=== PATIENT | male | born 1945 | race Caucasian/White ===

== ENCOUNTER 2018-01-10 12:29 | Inpatient (IN) | payer OTHER ==
[2018-01-10 12:36] VITALS: BMI 34.2
[2018-01-10 13:38] LABS: HEMATOCRIT 46.6 % (35.4-49); HEMOGLOBIN 15.2 GM/dl (11.7-16.9); MCH 27.5 pg (25.7-33.7); MCHC 32.7 g/dl (32.0-35.9); MEAN CELL VOLUME 84.2 fl (80-96); MEAN PLT VOLUME 8.7 fl (7.5-11.1); PLATELET COUNT 254 K/MM3 (134-434); RBC 5.54 M/mm3 (4.00-5.60); RDW 13.3 % (11.9-15.9); WHITE BLOOD COUNT 16.5 K/mm3 (4.0-10.8)
[2018-01-10 13:57] LABS: ALBUMIN 4.6 g/dl (3.5-5.0); ALK PHOS 72 U/L (32-92); BLOOD UREA NITROGEN 29 mg/dl (7-18); CALCIUM 10.3 mg/dl (8.4-10.2); CREATININE 1.6 mg/dl (0.6-1.3); GLUCOSE,RANDOM 241 mg/dl (74-106); MAGNESIUM 1.7 mg/dL (1.8-2.4); SGOT/AST 24 U/L (10-42); SGPT/ALT 9 U/L (10-40); TOT PROT 7.3 g/dl (6.4-8.3)
[2018-01-10 13:58] LABS: ACTIVATED PTT 25.3 SECONDS (24.0-38.9)
--- NOTE | 2018-01-10 13:59 | PDOC ---
History of Present Illness - General History Source: Patient Exam Limitations: No Limitations - History of Present Illness Initial Comments: 01/10/18 13:55 72-year-old male with past medical history of a left inguinal hernia, Parkinson' s disease, diabetes presents with nausea, vomiting and unable to pass bowel movements. Patient reports her last 2 days that he feels that he has decreased colitis diffuse abdominal pain and distention. Denies any fevers or chills. Does report some nausea and vomiting. He has been known to have a left inguinal hernia that he has outpatient surgeons evaluating him for potential surgery. Came to the ED for further evaluation. <Kolton Mcleod - Last Filed: 01/10/18 17:01> <Janene Rodriguez - Last Filed: 01/10/18 17:14> - General Chief Complaint: Pain Stated Complaint: abdominal pain Time Seen by Provider: 01/10/18 12:34 Past History - Past Medical History COPD: No Diabetes: Yes HTN: Yes Hypercholesterolemia: Yes - Suicide/Smoking/Psychosocial Hx Smoking History: Former smoker Have you smoked in the past 12 months: No Information on smoking cessation initiated: No Hx Alcohol Use: No Drug/Substance Use Hx: No <Kolton Mcleod - Last Filed: 01/10/18 17:01> <Janene Rodriguez - Last Filed: 01/10/18 17:14> - Past Medical History Allergies/Adverse Reactions: Allergies Allergy/AdvReac Type Severity Reaction Status Date / Time Penicillins Allergy Verified 01/10/18 12:37 Home Medications: Ambulatory Orders Aspirin 81 mg PO DAILY 01/10/18 Carbidopa/Levodopa [Rytary ER 23.75 mg-95 mg Cap] 3 each PO TID 01/10/18 Metformin HCl 500 mg PO DAILY 01/10/18 Ranitidine HCl [Zantac] 150 mg PO DAILY 01/10/18 Simvastatin [Zocor -] 40 mg PO DAILY 01/10/18 Review of Systems - Review of Systems Able to Perform ROS?: Yes Comments:: 01/10/18 13:56 GENERAL/CONSTITUTIONAL: No fever, weakness. HEAD, EYES, EARS, NOSE AND THROAT: No change in vision. No ear pain or discharge. No sore throat. CARDIOVASCULAR: No chest pain or shortness of breath. RESPIRATORY: No cough, wheezing, or hemoptysis. GASTROINTESTINAL: + abdominal pain, nausea, vomiting, diarrhea,decreased PO intolerance. +decreased flatus. GENITOURINARY: No dysuria, frequency, or change in urination. MUSCULOSKELETAL: No joint or muscle swelling or pain. No neck or back pain. SKIN: No rash NEUROLOGIC: No headache, vertigo, loss of consciousness, or change in strength/ sensation. ENDOCRINE: No increased thirst. No abnormal weight change. HEMATOLOGIC/LYMPHATIC: No anemia, easy bleeding, or history of blood clots. ALLERGIC/IMMUNOLOGIC: No hives or skin allergy. <Kolton Mcleod - Last Filed: 01/10/18 17:01> *Physical Exam - Vital Signs Last Vital Signs Temp Pulse Resp BP Pulse Ox 97.2 F L 80 22 142/86 99 01/10/18 12:01/10/18 12:01/10/18 12:01/10/18 12:01/10/18 13:30 - Physical Exam Comments: 01/10/18 13:57 GENERAL: Awake, alert, and fully oriented, in no acute distress. HEAD: No signs of trauma EYES: PERRLA, EOMI, sclera anicteric, conjunctiva clear ENT: Auricles normal inspection, hearing grossly normal, nares patent NECK: Normal ROM, supple, LUNGS: Breath sounds equal, clear to auscultation bilaterally. No wheezes, and no crackles HEART: Regular rate and rhythm, normal S1 and S2, no murmurs, rubs or gallops ABDOMEN: Soft but distended. Tympanic. Diffuse mildly tender throughout. No guarding, no rebound. exam: Large left sided inguinal hernia appreciated. No scrotal tenderness EXTREMITIES: Normal range of motion, no edema. No clubbing or cyanosis. No cords, erythema, or tenderness NEUROLOGICAL: Cranial nerves II through XII grossly intact. Normal speech, normal gait SKIN: Warm, Dry, normal turgor, no rashes or lesions noted. <Kolton Mcleod - Last Filed: 01/10/18 17:01> - Vital Signs Last Vital Signs Temp Pulse Resp BP Pulse Ox 97.2 F L 80 22 142/86 99 01/10/18 12:31 01/10/18 12:01/10/18 12:01/10/18 12:01/10/18 13:30 <Janene Rodriguez Last Filed: 01/10/18 17:14> Heart Score/ECG Review #1 ECG reviewed & interpreted by me at: 14:00 01/10/18 14:01 AV paced 95 <Kolton Mcleod - Last Filed: 01/10/18 17:01> ED Treatment Course - LABORATORY CBC & Chemistry Diagram: 01/10/18 13:15 01/10/18 13:15 - ADDITIONAL ORDERS Additional order review: 01/10/18 13:15 RBC 5.54 MCV 84.2 MCHC 32.7 RDW 13.3 MPV 8.7 Neutrophils % No Result Required. Lymphocytes % No Result Required. - RADIOLOGY Radiology Studies Ordered: Category Date Time Status ABDOMEN & PELVIS CT W/O CONTR [CT] Stat CT Scan 01/10/18 13:12 Taken <Kolton Mcleod - Last Filed: 01/10/18 17:01> - LABORATORY CBC & Chemistry Diagram: 01/10/18 13:15 01/10/18 13:15 - ADDITIONAL ORDERS Additional order review: Laboratory Results 01/10/18 01/10/18 01/10/18 13:15 13:15 13:15 PT with INR 13.1 H INR 1.17 PTT (Actin FS) 25.3 L Sodium 137 Potassium 4.2 Chloride 98 Carbon Dioxide 23 Anion Gap 16 BUN 29 H Creatinine 1.6 H Creat Clearance w eGFR 42.46 Random Glucose 241 H Calcium 10.3 H Phosphorus 4.0 Magnesium 1.7 L Total Bilirubin 1.0 AST 24 ALT 9 L Alkaline Phosphatase 72 Troponin I < 0.03 Total Protein 7.3 Albumin 4.6 01/10/18 13:15 RBC 5.54 MCV 84.2 MCHC 32.7 RDW 13.3 MPV 8.7 Neutrophils % No Result Required. Lymphocytes % No Result Required. <Janene Rodriguez - Last Filed: 01/10/18 17:14> Medical Decision Making - Medical Decision Making 01/10/18 13:57 Vital Signs Temp Pulse Resp BP Pulse Ox 97.2 F L 80 22 142/86 99 01/10/18 12:31 01/10/18 12:31 01/10/18 12:31 01/10/18 12:31 01/10/18 13:30 Given the large hernia and nausea and vomiting and distended abdomen, we'll need to rule out obstruction secondary to hernia. Labs, CAT scan abdomen pelvis. Reassess. 01/10/18 15:46 CBC, BMP 01/10/18 13:15 01/10/18 13:15 CMP Sodium 137 mmol/L (136-145) 01/10/18 13:15 Potassium 4.2 mmol/L (3.5-5.1) 01/10/18 13:15 Chloride 98 mmol/L (98-107) 01/10/18 13:15 Carbon Dioxide 23 mmol/L (22-28) 01/10/18 13:15 Anion Gap 16 (8-16) 01/10/18 13:15 BUN 29 mg/dl (7-18) H 01/10/18 13:15 Creatinine 1.6 mg/dl (0.6-1.3) H 01/10/18 13:15 Creat Clearance w eGFR 42.46 (>60) 01/10/18 13:15 Random Glucose 241 mg/dl (74-106) H 01/10/18 13:15 Calcium 10.3 mg/dl (8.4-10.2) H 01/10/18 13:15 Phosphorus 4.0 mg/dl (2.5-4.6) 01/10/18 13:15 Magnesium 1.7 mg/dL (1.8-2.4) L 01/10/18 13:15 Total Bilirubin 1.0 mg/dl (0.2-1.0) 01/10/18 13:15 AST 24 U/L (10-42) 01/10/18 13:15 ALT 9 U/L (10-40) L 01/10/18 13:15 Alkaline Phosphatase 72 U/L (32-92) 01/10/18 13:15 Troponin I < 0.03 ng/ml (0.00-0.06) 01/10/18 13:15 Total Protein 7.3 g/dl (6.4-8.3) 01/10/18 13:15 Albumin 4.6 g/dl (3.5-5.0) 01/10/18 13:15 Lipase 188 U/L (73-393) 01/10/18 13:15 Patient is noted with a white count 16.5 and 12% bands. Blood cultures ordered. Levaquin and Flagyl was ordered. CT scan demonstrates large left inguinal hernia and bowel obstruction. Dr. Pauline velarde. Awaiting phone call back from Dr. Cox. Case was discussed with patient's daughter, Lorraine, who was aware and agrees with the plan. [facility]. Case discussed in detail with admitting physician including history, physical exam and ancillary studies. Admitting physician has assumed care for the patient, will follow all pending diagnostics and will complete the evaluation and treatment. 01/10/18 17:[address] Cox. Patient has not seen their service since 2003, and has not been their patient since 2003. Dr. Cox requests that the on-call surgical team be consulted. [facility] paged. <Kolton Mcleod - Last Filed: 01/10/18 17:01> - Medical Decision Making 01/10/18 15:32 [facility] [phone] D[facility] [phone] Case discussed with daughter Lorraine at [phone] 01/10/18 16:53 Placed call to office of Dr. Wally Carpenter of general surgery, who the patient has seen in the past, at [phone]. Received call back from covering physician, Dr. Cox. 01/10/18 17:11 Placed call to [facility], ultrasonic seaming machine operator for surgery, at [phone]. Case discussed with Dr. Laughlin who agreed to consult. <Janene Rodriguez - Last Filed: 01/10/18 17:14> *DC/Admit/Observation/Transfer - Discharge Dispostion Admit: Yes <Kolton Mcleod - Last Filed: 01/10/18 17:01> - Attestations Scribe Attestion: 01/10/18 15:33 Documentation prepared by Janene Rodriguez, acting as medical equipment repairer for Kolton Mcleod MD. <Janene Rodriguez - Last Filed: 01/10/18 17:14> Diagnosis at time of Disposition: Bowel obstruction Qualifiers: Intestinal obstruction type: unspecified Intestinal obstruction extent: unspecified extent Qualified Code(s): K56.609 - Unspecified intestinal obstruction, unspecified as to partial versus complete obstruction Inguinal hernia Qualifiers: Obstruction and gangrene presence: with obstruction but without gangrene Laterality: unspecified laterality Recurrence: non-recurrent Qualified Code(s): K40.30 - Unilateral inguinal hernia, with obstruction, without gangrene, not specified as recurrent - Discharge Dispostion Condition at time of disposition: Stable
[2018-01-10 14:02] LABS: INR 1.17 (0.82-1.09); PROTHROMBIN TIME (PATIENT) 13.1 SEC (10.2-13.0)
[2018-01-10 14:27] LABS: ANION GAP 16 (8-16); CHLORIDE 98 mmol/L (98-107); CO2 23 mmol/L (22-28); POTASSIUM 4.2 mmol/L (3.5-5.1); SODIUM 137 mmol/L (136-145)
[2018-01-10 15:43] LABS: LIPASE 188 U/L (73-393)
[2018-01-10] MEDS ORDERED: SODIUM CHLORIDE 1,000 ML IV SCH (15:45)
[2018-01-10] MEDS ORDERED: PANTOPRAZOLE SODIUM 40 MG VIAL IVPUSH ONE (16:00)
[2018-01-10] MEDS ORDERED: SODIUM CHLORIDE 1,000 ML IV STA (16:12)
[2018-01-10] MEDS ORDERED: PANTOPRAZOLE SODIUM 40 MG VIAL ONE (16:38)
[2018-01-10] MEDS ORDERED: HEMOQUE TEST 1 EACH EACH ONE ×2 (16:40→16:42)
[2018-01-10] MEDS ORDERED: INSULIN (NOVOLOG) ASPART 100 UNITS/ML 10ML VIAL ONE (16:53)
[2018-01-10] MEDS: INSULIN SLIDING SCALE (NOVOLOG) 1 VIAL SQ SCH (16:55)
--- NOTE | 2018-01-10 18:11 | CONSULT ---
Consult Consult Specialty:: general surgery Referred by:: hernia and obstruction Reason for Consultation:: hernia with obstruction - History of Present Illness Chief Complaint: vomiting History of Present Illness: 72yo male PMH Parkinson's HTN, Diabetes type 2, hyperlipidemia, dementia, s/p PPM for 3rd degree heart block, s/p right inguinal hernia repair (30 years ago) presents to the emergency department with complaints of abdominal pain, nausea and vomiting. He has a very large left inguinal hernia, enlarging over years. He has been previously seen by Dr. Wally Carpenter with similar symptoms. He report that the pain is now resolved. He reports difficulty with closing his legs. He also reports difficulty with having bowel movements. NGT could not be placed, now the patient is refusing. He gives a vague account of being evaluated in a [facility] for the same repair. He is not interested in having surgery at present. We were asked to assess. 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 Place of : [facility] History of Recent Travel: No Home Medications - Allergies Allergies/Adverse Reactions: Allergies Allergy/AdvReac Type Severity Reaction Status Date / Time No Known Allergies Allergy Unverified 01/10/18 23:46 - Home Medications Home Medications: Ambulatory Orders Aspirin 81 mg PO DAILY 01/10/18 Carbidopa/Levodopa [Rytary ER 23.75 mg-95 mg Cap] 3 each PO TID 01/10/18 Metformin HCl 500 mg PO DAILY 01/10/18 Ranitidine HCl [Zantac] 150 mg PO DAILY 01/10/18 Simvastatin [Zocor -] 40 mg PO DAILY 01/10/18 Review of Systems - Review of Systems Constitutional: denies: Chills, Fever, Malaise Eyes: denies: Blurred Vision, Recent Change in Vision HENT: denies: Difficult Swallowing, Throat Pain Neck: denies: Pain on Movement, Swollen Glands Cardiovascular: denies: Chest Pain, Edema Respiratory: denies: Cough, SOB Gastrointestinal: denies: Constipation, Diarrhea Genitourinary: denies: Discharge, Dysuria Musculoskeletal: denies: Muscle Pain, Muscle Weakness Integumentary: denies: Lesions, Rash Neurological: denies: Seizure, Syncope Endocrine: denies: Unexplained Weight Gain, Unexplained Weight Loss Hematology/Lymphatic: denies: Easily Bruised, Excessive Bleeding Psychiatric: denies: Anxiety, Depression Physical Exam Vital Signs: Vital Signs Temperature 97.2 F L 01/10/18 12:31 Pulse Rate 80 01/10/18 12:31 Respiratory Rate 22 01/10/18 12:31 Blood Pressure 142/86 01/10/18 12:31 O2 Sat by Pulse Oximetry (%) 99 01/10/18 13:30 Vital Signs Period Temp Pulse Resp BP Sys/Garay Pulse Ox Last 24 Hr 97.2 F-98.5 F 78-80 18-22 90-142/51-86 95-100 Intake & Output 01/10/18 01/11/18 01/11/18 23:59 07:59 15:59 Weight 225 lb Other: Voiding Method Toilet # Unmeasured Voids Void 1 Height 5 ft 8 in Body Mass Index (BMI) 34.2 Constitutional: Yes: Well Nourished, No Distress, Calm Eyes: Yes: Conjunctiva Clear, EOM Intact HENT: Yes: Atraumatic, Normocephalic Neck: Yes: Supple, Trachea Midline Cardiovascular: Yes: Regular Rate and Rhythm, S1, S2 Respiratory: Yes: Regular, CTA Bilaterally Gastrointestinal: Yes: Normal Bowel Sounds, Soft, Distention, Hernia (Large left inguinal partially reducible). No: Tenderness, Tenderness, Epigastrium, Tenderness, Rebound ...Rectal Exam: Yes: Deferred Renal/: No: CVA Tenderness - Left, CVA Tenderness - Right Musculoskeletal: No: Muscle Pain, Muscle Weakness Extremities: No: Cool, Cyanosis Neurological: Yes: Alert, Oriented, Confusion (moments of confusion, memory omission during conversation) Psychiatric: Yes: Alert, Oriented Labs: CBC, BMP 01/10/18 13:15 01/10/18 13:15 Imaging - Results Cat Scan: Report Reviewed, Image Reviewed (Left inguinal hernia with assocaited bowel obstrution) Problem List - Problems (1) Left inguinal hernia Assessment/Plan: 72yo male MMP with Large left inguinal hernia with associated partial small bowel obstruction, Lactic acid 3.5-->2.4, WBC - 16.5, intermittent vomiting but also diarrhea. No tenderness or peritonitis. His abdominal pain has resolved. He needs surgery to address his obstruction. He appears to understand the situation and his oriented but is refusing to have surgery. Attempted to contact his daughter, Anna Marie [phone] - no answer, left a message. NPO and IVF hydration NGT prn vomiting empiric IV antibiotics Adequate analgesia Cardiology evaluation appreciated Psychiatric evaluation repeat labs serial abdominal exams Transfer to [facility] for Left inguinal hernia repair with mesh Thank you for the opportunity to participate in the care of this patient. Code(s): K40.90 - UNIL INGUINAL HERNIA, W/O OBST OR GANGR, NOT SPCF RECUR (2) HTN (hypertension) Code(s): I10 - ESSENTIAL (PRIMARY) HYPERTENSION (3) Hyperlipemia Code(s): E78.5 - HYPERLIPIDEMIA, UNSPECIFIED (4) Bowel obstruction Code(s): K56.609 - UNSP INTESTNL OBST, UNSP TO PARTIAL VERSUS COMPLETE OBST Qualifiers: Intestinal obstruction type: unspecified Intestinal obstruction extent: unspecified extent Qualified Code(s): K56.609 - Unspecified intestinal obstruction, unspecified as to partial versus complete obstruction (5) Third degree heart block by electrocardiogram Code(s): I44.2 - ATRIOVENTRICULAR BLOCK, COMPLETE
[2018-01-10 22:14] LABS: PH,URINE 5.5 (4.5-8); URINE APPEARANCE Clear; URINE BILIRUBIN 1+ (NEGATIVE); URINE BLOOD Negative (NEGATIVE); URINE GLUCOSE (UA) Trace (NEGATIVE); URINE KETONE 1+ (NEGATIVE); URINE NITRITE Negative (NEGATIVE); URINE UROBILINOGEN 0.2 (0.2-1.0)
[2018-01-10 22:15] LABS: URINE COLOR YELLOW; URINE LEUK ESTERASE TRACE (NEGATIVE); URINE PROTEIN 1+ (NEGATIVE)
--- NOTE | 2018-01-10 22:51 | HP ---
CHIEF COMPLAINT: abdominal pain PCP: Sabino HISTORY OF PRESENT ILLNESS: This is a 72 year old male with a significant history of L inguinal hernia who presented to the ED with abdominal pain, nausea and vomiting. He also reports difficulty with having bowel movements. Upon exam, pt denies current vomiting. He reports that his pain has resolved. ER course was notable for: (1) CT abd/pelvis (2) WBC 16.5 (3) Recent Travel: pt denies PAST MEDICAL HISTORY: L inguinal hernia, Parkinson's disease, DM, HLD, HTN (no longer on medications) PAST SURGICAL HISTORY: PPM Social History: Smoking: pt denies Alcohol: occ wine Drugs: pt denies Family History: mother age 84, unknown father age 76, unknown, h/o DM 1 brother with "GI disorders" 1 sister age 51, pancreatic CA 1 sister s/p PPM placement Allergies Penicillins Allergy (Verified 01/10/18 12:37) HOME MEDICATIONS: 3 Medication Instructions Recorded Aspirin 81 mg PO DAILY 01/10/18 Carbidopa/Levodopa [Rytary ER 3 each PO TID 01/10/18 23.75 mg-95 mg Cap] Metformin HCl 500 mg PO DAILY 01/10/18 Ranitidine HCl [Zantac] 150 mg PO DAILY 01/10/18 Simvastatin [Zocor -] 40 mg PO DAILY 01/10/18 REVIEW OF SYSTEMS CONSTITUTIONAL: Absent: fever, chills, diaphoresis, generalized weakness, malaise, loss of appetite, weight change HEENT: Absent: rhinorrhea, nasal congestion, throat pain, throat swelling, difficulty swallowing, mouth swelling, ear pain, eye pain, visual changes CARDIOVASCULAR: Absent: chest pain, syncope, palpitations, irregular heart rate, lightheadedness , peripheral edema RESPIRATORY: Absent: cough, shortness of breath, dyspnea with exertion, orthopnea, wheezing, stridor, hemoptysis GASTROINTESTINAL: Present: abdominal pain, nausea, vomiting Absent: abdominal distension, diarrhea, constipation, melena, hematochezia GENITOURINARY: Absent: dysuria, frequency, urgency, hesitancy, hematuria, flank pain, genital pain MUSCULOSKELETAL: Absent: myalgia, arthralgia, joint swelling, back pain, neck pain SKIN: Absent: rash, itching, pallor HEMATOLOGIC/IMMUNOLOGIC: Absent: easy bleeding, easy bruising, lymphadenopathy, frequent infections ENDOCRINE: Absent: unexplained weight gain, unexplained weight loss, heat intolerance, cold intolerance NEUROLOGIC: Absent: headache, focal weakness or paresthesias, dizziness, unsteady gait, seizure, mental status changes, bladder or bowel incontinence PSYCHIATRIC: Absent: anxiety, depression, suicidal or homicidal ideation, hallucinations. PHYSICAL EXAMINATION Vital Signs - 24 hr 3 01/10/18 01/10/18 01/10/18 12:31 13:30 18:30 Temperature 97.2 F L 98.1 F Pulse Rate 80 Pulse Rate [ 78 Left Radial] Respiratory 22 20 Rate Blood Pressure 142/86 Blood Pressure 120/76 [Right Arm] O2 Sat by Pulse 99 99 100 Oximetry (%) 3 01/10/18 01/10/18 19:37 22:10 Temperature 98.4 F 98.3 F Pulse Rat 80 80 Pulse Rate [ Left Radial] Respiratory 20 19 Rate Blood Pressure 90/55 98/51 Blood Pressure [Right Arm] O2 Sat by Pulse 96 95 Oximetry (%) GENERAL: Awake, alert, and fully oriented, in no acute distress. HEAD: Normal with no signs of trauma. EYES: Pupils equal, round and reactive to light, extraocular movements intact, sclera anicteric, conjunctiva clear. No lid lag. EARS, NOSE, THROAT: Ears normal, nares patent, oropharynx clear without exudates. Moist mucous membranes. NECK: Normal range of motion, supple without lymphadenopathy, JVD, or masses. LUNGS: Breath sounds equal, clear to auscultation bilaterally. No wheezes, and no crackles. No accessory muscle use. HEART: Regular rate and rhythm, normal S1 and S2 without murmur, rub or gallop. ABDOMEN: Soft, not distended, normoactive bowel sounds, no guarding, no rebound , no masses. No hepatomegaly or splenomegaly. + mild tenderness left groin area MUSCULOSKELETAL: Normal range of motion at all joints. No bony deformities or tenderness. No CVA tenderness. UPPER EXTREMITIES: 2+ pulses, warm, well-perfused. No cyanosis. No clubbing. No peripheral edema. LOWER EXTREMITIES: 2+ pulses, warm, well-perfused. No calf tenderness. No peripheral edema. NEUROLOGICAL: Cranial nerves II-XII intact. Normal speech. Normal gait. PSYCHIATRIC: Cooperative. Good eye contact. Appropriate mood and affect. SKIN: Warm, dry, normal turgor, no rashes or lesions noted, normal capillary refill. Laboratory Results - last 24 hr 3 01/10/18 01/10/18 01/10/18 13:15 13:15 13:15 16:44 WBC 16.5 H RBC 5.54 Hgb 15.2 Hct 46.6 MCV 84.2 MCH 27.5 MCHC 32.7 RDW 13.3 Plt Count 254 MPV 8.7 Neutrophils % No Result Required. Neutrophils % (Manual) 84.0 H Band Neutrophils % 12.0 H Lymphocytes % No Result Required. Lymphocytes % (Manual) 1.0 L Monocytes % (Manual) 3 L PT with INR 13.1 H INR 1.17 PTT (Actin FS) 25.3 L Sodium 137 Potassium 4.2 Chloride 98 Carbon Dioxide 23 Anion Gap 16 BUN 29 H Creatinine 1.6 H Creat Clearance w eGFR 42.46 POC Glucometer [phone] Random Glucose 241 H Lactic Acid 3.4 H* Calcium 10.3 H Phosphorus 4.0 Magnesium 1.7 L Total Bilirubin 1.0 AST 24 ALT 9 L Alkaline Phosphatase 72 Troponin I < 0.03 Total Protein 7.3 Albumin 4.6 Lipase 188 Urine Color Urine Appearance Urine pH Ur Specific [place] Urine Protein Urine Glucose (UA) Urine Ketones Urine Blood Urine Nitrite Urine Bilirubin Urine Urobilinogen Ur Leukocyte Esterase 3 01/10/18 01/10/18 01/10/18 20:15 22:00 22:16 WBC RBC Hgb Hct MCV MCH MCHC RDW Plt Count MPV Neutrophils % Neutrophils % (Manual) Band Neutrophils % Lymphocytes % Lymphocytes % (Manual) Monocytes % (Manual) PT with INR INR PTT (Actin FS) Sodium Potassium Chloride Carbon Dioxide Anion Gap BUN Creatinine Creat Clearance w eGFR POC Glucometer 140 Random Glucose Lactic Acid 2.5 H* Calcium Phosphorus Magnesium Total Bilirubin AST ALT Alkaline Phosphatase Troponin I Total Protein Albumin Lipase Urine Color Yellow Urine Appearance Clear Urine pH 5.5 Ur Specific [place] 1.025 Urine Protein 1+ H Urine Glucose (UA) Trace Urine Ketones 1+ H Urine Blood Negative Urine Nitrite Negative Urine Bilirubin 1+ H Urine Urobilinogen 0.2 Ur Leukocyte Esterase Trace H Radiology Results IMPRESSION: a mall bowel obstruction is identified secondary to a large left inguinal hernia extending into the ipsilateral scrotum. A small amount of free fluid is noted within the left scrotal hernia sac as well as within the perihepatic region. Extensive atherosclerotic coronary artery calcifications are seen. Transvenous cardiac pacemaker in place. Reported By: Car Munoz MD 01/10/18 1431 ECG Atrial sensed ventricular-paced rhythm Vent rate 95, QTC 542 ASSESSMENT/PLAN: 72yM with PMH L ingunal hernia, PD, DM, HLD, HTN presented to the ED with abdominal pain, nausea, vomiting. SBO - NPO except parkinson's med with a sip of water - surgical consult - NS @ 75cc/hr - As per surgery, pt likely to go to OR tomorrow, surgery requesting cardiology consult secondary to PPM - given elevated WBC will cont ABT. Pt with elevated QTC, will give ceftriaxone instead of levaquin although minimal risk given PPM--allergy to PCN on chart, however, pt reports that he recently completed course of amoxicillin without reaction. Will delete PCN allergy. Pt stated that he "just always told people he was allergic," but he is unaware of any reaction in the past. elevated lactic acid - trending down - Cont gentle IV hydration HLD - hold simvastatin while NPO HTN - previously on benicar but pt with orthostatic hypoTN on same. no longer on meds, monitor BP DM - hold metformin - BGM AC/HS with novolog sliding scale. PD - cont home rytary ER with a sip of water, may use pt supply DVT PPX - start heparin post op FEN - NS @ 75cc/hr - BMP in am - NPO Dispo: Pt currently requires inpatient management of his emergent condition. Visit type - Emergency Visit Emergency Visit: Yes ED Registration Date: 01/10/18 Care time: The patient presented to the Emergency Department on the above date and was hospitalized for further evaluation of their emergent condition. - New Patient This patient is new to me today: Yes Date on this admission: 01/10/18 - Critical Care Critical Care patient: No Hospitalist Screening - Colonoscopy Questionnaire Colonoscopy Questionnaire: Colonoscopy Questionnaire - Patient: 50 - 75 years old and never had a screening colonoscopy: Yes History of colon or rectal polyps, or CA: No History of IBD, Crohn's disease or UC: No History of abdominal radiation therapy as a child: No - Relative: 1 with colon or rectal CA, or polyps at age 60 or younger: No Colon or rectal CA diagnosed at age 45 or younger: No Multiple relatives with colon or rectal CA: No - Outcome: Screening Result: Positive Screen
[2018-01-10 23:20] LABS: URINE BACTERIA FEW /hpf (NEGATIVE); URINE RBC 0-2 /hpf (0-3)
--- NOTE | 2018-01-11 07:26 | PN ---
Physical Exam: SUBJECTIVE: Patient seen and examined, patient is ambulatory at bedside, incontinent of loose stools, denies any abdominal pain, patient states, "I want to leave the hospital you can not keep me here." OBJECTIVE: patient is a 72 y/o male with a past medical history of L inguinal hernia, Parkinson's disease, DM, HLD, HTN (no longer on medications). Patient was admitted from the emergency department for a left incarcerated inginual hernia. Vital Signs Period Temp Pulse Resp BP Sys/Garay Pulse Ox Last 24 Hr 97.2 F-98.5 F 78-80 18-22 90-142/51-86 95-100 GENERAL: The patient is awake, alert, and oriented times person and place, agitation. HEAD: Normal with no signs of trauma. EYES: PERRL, extraocular movements intact, sclera anicteric, conjunctiva clear. No ptosis. ENT: Ears normal, nares patent, oropharynx clear without exudates, moist mucous membranes. NECK: Trachea midline, full range of motion, supple. LUNGS: Breath sounds equal, clear to auscultation bilaterally, no wheezes, no crackles, no accessory muscle use. HEART: Regular rate and rhythm, S1, S2 without murmur, rub or gallop. ABDOMEN: Soft, left groin reducible hernia nontender, nondistended, normoactive bowel sounds, no guarding, no rebound, no hepatosplenomegaly, no masses. EXTREMITIES: 2+ pulses, warm, well-perfused, no edema. NEUROLOGICAL: Cranial nerves II through XII grossly intact. Normal speech, gait not observed. PSYCH: Normal mood, normal affect. SKIN: Warm, dry, normal turgor, no rashes or lesions noted Laboratory Results - last 24 hr CBC WBC 9.8 K/mm3 (4.0-10.8) D 01/11/18 07:30 RBC 4.95 M/mm3 (4.00-5.60) 01/11/18 07:30 Hgb 13.7 GM/dl (11.7-16.9) 01/11/18 07:30 Hct 41.4 % (35.4-49) 01/11/18 07:30 MCV 83.5 fl (80-96) 01/11/18 07:30 MCH 27.7 pg (25.7-33.7) 01/11/18 07:30 MCHC 33.2 g/dl (32.0-35.9) 01/11/18 07:30 RDW 13.1 % (11.9-15.9) 01/11/18 07:30 Plt Count 237 K/MM3 (134-434) 01/11/18 07:30 MPV 9.0 fl (7.5-11.1) 01/11/18 07:30 Neutrophils % 85.7 % (42.8-82.8) H 01/11/18 07:30 Neutrophils % (Manual) 84.0 % (42.8-82.8) H 01/10/18 13:15 Band Neutrophils % 12.0 % (0-10) H 01/10/18 13:15 Lymphocytes % 8.3 % (8-40) 01/11/18 07:30 Lymphocytes % (Manual) 1.0 % (8-40) L 01/10/18 13:15 Monocytes % 5.9 % (3.8-10.2) 01/11/18 07:30 Monocytes % (Manual) 3 % (3.8-10.2) L 01/10/18 13:15 Eosinophils % 0.1 % (0-4.5) 01/11/18 07:30 Basophils % 0.0 % (0-2.0) 01/11/18 07:30 CMP Sodium 137 mmol/L (136-145) 01/11/18 07:30 Potassium 4.4 mmol/L (3.5-5.1) 01/11/18 07:30 Chloride 110 mmol/L (98-107) H D 01/11/18 07:30 Carbon Dioxide 22 mmol/L (22-28) 01/11/18 07:30 Anion Gap 5 (8-16) L 01/11/18 07:30 BUN 36 mg/dl (7-18) H D 01/11/18 07:30 Creatinine 1.4 mg/dl (0.6-1.3) H 01/11/18 07:30 Creat Clearance w eGFR 42.46 (>60) 01/10/18 13:15 POC Glucometer 152 UNITS (80-120) 01/11/18 06:05 Random Glucose 159 mg/dl (74-106) H D 01/11/18 07:30 Lactic Acid 2.5 mmol/L (0.0-2.0) H* 01/10/18 20:15 Calcium 8.7 mg/dl (8.4-10.2) 01/11/18 07:30 Phosphorus 2.9 mg/dl (2.5-4.6) D 01/11/18 07:30 Magnesium 1.8 mg/dL (1.8-2.4) 01/11/18 07:30 Total Bilirubin 1.0 mg/dl (0.2-1.0) 01/10/18 13:15 AST 24 U/L (10-42) 01/10/18 13:15 ALT 9 U/L (10-40) L 01/10/18 13:15 Alkaline Phosphatase 72 U/L (32-92) 01/10/18 13:15 Troponin I < 0.03 ng/ml (0.00-0.06) 01/10/18 13:15 Total Protein 7.3 g/dl (6.4-8.3) 01/10/18 13:15 Albumin 4.6 g/dl (3.5-5.0) 01/10/18 13:15 Lipase 188 U/L (73-393) 01/10/18 13:15 Active Medications Generic Name Dose Route Start Last Admin Trade Name Noéq PRN Reason Stop Dose Admin Sodium Chloride 1,000 mls @ 100 mls/hr 01/10/18 15:45 01/10/18 16:34 Normal Saline - IV 100 mls/hr ASDIR BRANDI Administration Metronidazole 500 mg in 100 mls @ 100 mls/hr 01/11/18 02:00 01/11/18 02:16 Flagyl 500mg Premixed Ivpb - IVPB 100 mls/hr Q8H-IV BRANDI Administration Ceftriaxone Sodium 2 gm in 100 mls @ 200 mls/hr 01/11/18 10:00 Rocephin 2gm Ivpb (Pre-Docked) IVPB DAILY BRANDI Insulin Aspart 1 vial 01/10/18 16:30 01/10/18 16:55 Novolog Vial Sliding Scale - SQ 4 unit ACHS BRANDI Administration Protocol Non-Formulary Medication 3 each 01/11/18 08:00 Carbidopa/Levodopa [Rytary Er 23.75 Mg-95 Mg Cap] PO TID@0800,1400,1800 [facility] IMAGING IMPRESSION: a mall bowel obstruction is identified secondary to a large left inguinal hernia extending into the ipsilateral scrotum. A small amount of free fluid is noted within the left scrotal hernia sac as well as within the perihepatic region. Extensive atherosclerotic coronary artery calcifications are seen. Transvenous cardiac pacemaker in place. Reported By: Car Munoz MD 01/10/18 1431 ECG Atrial sensed ventricular-paced rhythm Vent rate 95, QTC 542 ASSESSMENT/PLAN: 1) SBO - secondary to left inginual hernia - keep npo, small sips or water with meds - Dr aLughlin, surgery, consulted and following - pending lactic acid, leukocytosis improved, continue empiric rocephin and flagyl 2) psych agitation - pt is requesting to leave the hospital, despite being made aware several times he has an incarcerated hernia that requires emergent surgical intervention , pt still wants to leave the hospital, appreciate Dr Astudillo (psychiatry) consult to determine competency 3) cardiovascular hypertension - no medications, b/p at goal hyperlipidemia - hold simvastin, pt is npo 4) endo dm - hold metformin ppx - hold ac pending surgery DVT PPX - start heparin post op FEN - NS @ 75cc/hr - BMP in am - NPO Dispo: Pt currently requires inpatient management of his emergent condition. Visit type - Emergency Visit Emergency Visit: Yes ED Registration Date: 01/10/18 Care time: The patient presented to the Emergency Department on the above date and was hospitalized for further evaluation of their emergent condition. - New Patient This patient is new to me today: Yes Date on this admission: 01/11/18 - Critical Care Critical Care patient: No - Discharge Referral Referred to [facility] Med P.C.: No
[2018-01-11 08:44] LABS: ANION GAP 5 (8-16); BLOOD UREA NITROGEN 36 mg/dl (7-18); CALCIUM 8.7 mg/dl (8.4-10.2); CHLORIDE 110 mmol/L (98-107); CO2 22 mmol/L (22-28); CREATININE 1.4 mg/dl (0.6-1.3); GLUCOSE,RANDOM 159 mg/dl (74-106); MAGNESIUM 1.8 mg/dL (1.8-2.4); PHOSPHOROUS 2.9 mg/dl (2.5-4.6); POTASSIUM 4.4 mmol/L (3.5-5.1); SODIUM 137 mmol/L (136-145)
[2018-01-11 08:48] LABS: EOS % 0.1 % (0-4.5); HEMATOCRIT 41.4 % (35.4-49); HEMOGLOBIN 13.7 GM/dl (11.7-16.9); LYMPH % 8.3 % (8-40); MCH 27.7 pg (25.7-33.7); MCHC 33.2 g/dl (32.0-35.9); MEAN CELL VOLUME 83.5 fl (80-96); MONO % 5.9 % (3.8-10.2); NEUT % 85.7 % (42.8-82.8); PLATELET COUNT 237 K/MM3 (134-434); RBC 4.95 M/mm3 (4.00-5.60); RDW 13.1 % (11.9-15.9); WHITE BLOOD COUNT 9.8 K/mm3 (4.0-10.8)
[2018-01-11] MEDS: PATIENT'S OWN MEDICATION (NON-FORMULARY) (Carbidopa/Levodopa [Rytary Er 23.75 Mg-95 Mg Cap PO SCH ×3 (08:49→17:34)
[2018-01-11] MEDS ORDERED: MAGNESIUM SULFATE 2 GM in SODIUM CHLORIDE 100 ML IVPB ONE (08:54)
[2018-01-11] MEDS ORDERED: MAGNESIUM SULFATE IN WATER 2 GM/50 ML IVPB IVPB ONE (09:30)
[2018-01-11] MEDS ORDERED: PT OWN MED DRAWER 7, Y5N ONE ×2 (09:37→14:03)
--- NOTE | 2018-01-11 09:49 | CON.CARD ---
Cardiology Consult (text) - Consultation Consultation Note: Chief Complaint: n/v/abd pain History of Present Illness: 72 year old male with a past medical history of NIDDM, HTN, HPL, parkinsons, ppm (2015, [facility] [place], [facility]), presumed cad (scar on prior mibi), here with n/v/abd pain. Found to have hernia with plans for OR. No cp, sob, palps, dizzy, loc, pnd, orthopnea, le edema. [place] [facility] [place] 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 Cardio/Vascular: Yes: HTN, Hyperlipdemia Endocrine: Yes: Diabetes Mellitus - Smoking History Smoking history: Never smoked Home Medications - Allergies Allergies/Adverse Reactions: Allergies Allergy/AdvReac Type Severity Reaction Status Date / Time No Known Allergies Allergy Unverified 01/10/18 23:46 - Home Medications Home Medications Medication Instructions Recorded Aspirin 81 mg PO DAILY 01/10/18 Carbidopa/Levodopa [Rytary ER 3 each PO TID 01/10/18 23.75 mg-95 mg Cap] Metformin HCl 500 mg PO DAILY 01/10/18 Ranitidine HCl [Zantac] 150 mg PO DAILY 01/10/18 Simvastatin [Zocor -] 40 mg PO DAILY 01/10/18 Review of Systems no fever, cough, mccormick, vision changes, gib, hematuria, dysuria, muscle pain - Risk Factors Known Risk Factors: Yes: Age, Diabetes Mellitus, Gender, Hypercholesterolemia, Hypertension Vital Signs: Vital Signs Period Temp Pulse Resp BP Sys/Garay Pulse Ox Last 24 Hr 97.2 F-98.5 F 78-80 18-22 90-142/51-86 95-100 nad no jvd rrr s1s2 no mrg cta bl nl eff aaox3 no le e/c/c abd nt nd pos bs no jaundice diaphoresis +dp pt no carotid bruits Laboratory Last Values WBC 9.8 K/mm3 (4.0-10.8) D 01/11/18 07:30 RBC 4.95 M/mm3 (4.00-5.60) 01/11/18 07:30 Hgb 13.7 GM/dl (11.7-16.9) 01/11/18 07:30 Hct 41.4 % (35.4-49) 01/11/18 07:30 MCV 83.5 fl (80-96) 01/11/18 07:30 MCH 27.7 pg (25.7-33.7) 01/11/18 07:30 MCHC 33.2 g/dl (32.0-35.9) 01/11/18 07:30 RDW 13.1 % (11.9-15.9) 01/11/18 07:30 Plt Count 237 K/MM3 (134-434) 01/11/18 07:30 MPV 9.0 fl (7.5-11.1) 01/11/18 07:30 Neutrophils % 85.7 % (42.8-82.8) H 01/11/18 07:30 Neutrophils % (Manual) 84.0 % (42.8-82.8) H 01/10/18 13:15 Band Neutrophils % 12.0 % (0-10) H 01/10/18 13:15 Lymphocytes % 8.3 % (8-40) 01/11/18 07:30 Lymphocytes % (Manual) 1.0 % (8-40) L 01/10/18 13:15 Monocytes % 5.9 % (3.8-10.2) 01/11/18 07:30 Monocytes % (Manual) 3 % (3.8-10.2) L 01/10/18 13:15 Eosinophils % 0.1 % (0-4.5) 01/11/18 07:30 Basophils % 0.0 % (0-2.0) 01/11/18 07:30 PT with INR 13.1 SEC (10.2-13.0) H 01/10/18 13:15 INR 1.17 (0.82-1.09) 01/10/18 13:15 PTT (Actin FS) 25.3 SECONDS (24.0-38.9) L 01/10/18 13:15 Sodium 137 mmol/L (136-145) 01/11/18 07:30 Potassium 4.4 mmol/L (3.5-5.1) 01/11/18 07:30 Chloride 110 mmol/L (98-107) H D 01/11/18 07:30 Carbon Dioxide 22 mmol/L (22-28) 01/11/18 07:30 Anion Gap 5 (8-16) L 01/11/18 07:30 BUN 36 mg/dl (7-18) H D 01/11/18 07:30 Creatinine 1.4 mg/dl (0.6-1.3) H 01/11/18 07:30 Creat Clearance w eGFR 42.46 (>60) 01/10/18 13:15 POC Glucometer 152 UNITS (80-120) 01/11/18 06:05 Random Glucose 159 mg/dl (74-106) H D 01/11/18 07:30 Lactic Acid 2.5 mmol/L (0.0-2.0) H* 01/10/18 20:15 Calcium 8.7 mg/dl (8.4-10.2) 01/11/18 07:30 Phosphorus 2.9 mg/dl (2.5-4.6) D 01/11/18 07:30 Magnesium 1.8 mg/dL (1.8-2.4) 01/11/18 07:30 Total Bilirubin 1.0 mg/dl (0.2-1.0) 01/10/18 13:15 AST 24 U/L (10-42) 01/10/18 13:15 ALT 9 U/L (10-40) L 01/10/18 13:15 Alkaline Phosphatase 72 U/L (32-92) 01/10/18 13:15 Troponin I < 0.03 ng/ml (0.00-0.06) 01/10/18 13:15 Total Protein 7.3 g/dl (6.4-8.3) 01/10/18 13:15 Albumin 4.6 g/dl (3.5-5.0) 01/10/18 13:15 Lipase 188 U/L (73-393) 01/10/18 13:15 Urine Color Yellow 01/10/18 22:00 Urine Appearance Clear 01/10/18 22:00 Urine pH 5.5 (4.5-8) 01/10/18 22:00 Ur Specific [place] 1.025 (1.005-1.025) 01/10/18 22:00 Urine Protein 1+ (NEGATIVE) H 01/10/18 22:00 Urine Glucose (UA) Trace (NEGATIVE) 01/10/18 22:00 Urine Ketones 1+ (NEGATIVE) H 01/10/18 22:00 Urine Blood Negative (NEGATIVE) 01/10/18 22:00 Urine Nitrite Negative (NEGATIVE) 01/10/18 22:00 Urine Bilirubin 1+ (NEGATIVE) H 01/10/18 22:00 Urine Urobilinogen 0.2 (0.2-1.0) 01/10/18 22:00 Ur Leukocyte Esterase Trace (NEGATIVE) H 01/10/18 22:00 Urine RBC 0-2 /hpf (0-3) 01/10/18 22:00 Urine WBC 10-20 (0-2) 01/10/18 22:00 Urine Bacteria Few /hpf (NEGATIVE) 01/10/18 22:00 ecg: sr, as-evp strategy mibi 09/2015: [facility] [place] scar, no ischemia, nl lvef echo 02/2015: nl lv size, lvef 50, apical/inf HK, nl rv, mild mr/tr/ar Assessment/Plan 72 year old male with a past medical history of NIDDM, HTN, HPL, parkinsons, ppm (2014, [facility] [place], [facility]), presumed cad (scar on prior mibi), here with n/v/abd pain. 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
[2018-01-11] MEDS ORDERED: CEFTRIAXONE 2 GM/100 ML BAG IVPB SCH (10:00)
--- NOTE | 2018-01-11 11:26 | PN ---
Progress Note (short form) - Note Progress Note: Called to discuss the situation with his next of kin, daughter Anna Marie Prince she understands and agrees to surgery. Will request transfer to [facility] because of significant loss of domain necessicating more extensive repair and potential for more significant post operative care. Case was booked and in the interim he was evaluated by psychiatry to be incapable of decision making. Left inguinal hernia repair with mesh - Discussed with patient risks, benefits and alternatives of planned procedure, including but not limited to bleeding, infection, injury to adjacent structures, leak or injury, intra-abdominal abscess, need for further procedures, ; alternatives include antibiotics, delayed or no surgery - risks of this include failure of nonoperative therapy, perforation, sepsis, recurrence, . The patients next of kin desires to proceed with operation - will take to OR for above. Informed consent signed for same preoperatively. Problem List - Problems (1) Left inguinal hernia Code(s): K40.90 - UNIL INGUINAL HERNIA, W/O OBST OR GANGR, NOT SPCF RECUR (2) HTN (hypertension) Code(s): I10 - ESSENTIAL (PRIMARY) HYPERTENSION (3) Hyperlipemia Code(s): E78.5 - HYPERLIPIDEMIA, UNSPECIFIED (4) Bowel obstruction Code(s): K56.609 - UNSP INTESTNL OBST, UNSP TO PARTIAL VERSUS COMPLETE OBST Qualifiers: Intestinal obstruction type: unspecified Intestinal obstruction extent: unspecified extent Qualified Code(s): K56.609 - Unspecified intestinal obstruction, unspecified as to partial versus complete obstruction (5) Third degree heart block by electrocardiogram Code(s): I44.2 - ATRIOVENTRICULAR BLOCK, COMPLETE
--- NOTE | 2018-01-11 11:34 | CON.PSY ---
Psychiatry Consult Chief Complaint: 72 year old male brought to Hospital yesyerday bu his aid for acute abdomen. Patient apparantly seen a MD at [facility] for his Hernia. Now , apparantly he is in obstruction and he refusing ythe Surgery. Symptoms: reports: Restlessness - Previous Psychiatric Treatment Outpatient: None Inpatient: None - Previous Substance Abuse Treatment Outpatient: None Inpatient: None - Current Medications Current Medications: Active Medications Famotidine (Pepcid -) 20 mg PO BID BRANDI Sodium Chloride (Normal Saline -) 1,000 mls @ 100 mls/hr IV ASDIR [facility] Last Admin: 01/10/18 16:34 Dose: 100 mls/hr Metronidazole (Flagyl 500mg Premixed Ivpb -) 500 mg in 100 mls @ 100 mls/hr IVPB Q8H-IV BRANDI Last Admin: 01/11/18 09:35 Dose: Not Given Ceftriaxone Sodium (Rocephin 2gm Ivpb (Pre-Docked)) 2 gm in 100 mls @ 200 mls/ hr IVPB DAILY [facility] Last Admin: 01/11/18 09:36 Dose: Not Given Insulin Aspart (Novolog Vial Sliding Scale -) 1 vial SQ ACHS BRANDI PRN Reason: Protocol Last Admin: 01/10/18 16:55 Dose: 4 unit Non-Formulary Medication (Carbidopa/Levodopa [Rytary Er 23.75 Mg-95 Mg Cap]) 3 each PO TID@0800,1400,1800 [facility] Last Admin: 01/11/18 08:49 Dose: 3 each - Allergies Allergies: Allergies Allergy/AdvReac Type Severity Reaction Status Date / Time No Known Allergies Allergy Unverified 01/10/18 23:46 - Current Living Status Usual Living Arrangement: Alone - Current Mental Status Evaluation Appearance: Disheveled Attitude: Uncooperative - Affect Affect: Constrictive Appropriateness: Not Appropriate - Mood Mood: Angry - Speech/Language Expressive: Coherent - Psychomotor Activity Psychomotor Activity: Hyperactive - Thought Process Thought Process: Circumstantial - Thought Content Hallucinations: Absent Delusions: Absent - Self Perception Self Perception: No Impairment - Cognition Attention: Diminished Orientation: Time Memory, Short Term: 2/3 Memory, Remote with Promptin/3 - Concentration Serial Sevens Intact: No Simple Calculations Intact: No - Abstraction Proverb Interpretation: Intact Judgement: Minimally Impaired - Insight Insight: Impaired - Impulse Control Impulse Control: Moderately Impaired - Suicidal Ideation Suicidal Ideation: No - Homicidal Ideation Homicidal Ideation: No Assessment/Plan 1) patient lacks functional capacity to make informed decisions about impending medical emergency due to obstruction. Patient believe that he is ok and wants to go his MD at [facility]. He attempted to walk out of the Hospital, displaying poor judgment.
--- NOTE | 2018-01-11 13:33 | EKG ---
Test Reason : Blood Pressure : / mmHG Vent. Rate : 095 BPM Atrial Rate : 095 BPM P-R Int : 156 ms QRS Dur : 174 ms QT Int : 432 ms P-R-T Axes : 046 -80 083 degrees QTc Int : 542 ms Atrial-sensed ventricular-paced rhythm ABNORMAL ECG WHEN COMPARED WITH ECG OF 21-FEB-2015 21:39, ELECTRONIC VENTRICULAR PACEMAKER HAS REPLACED IDIOVENTRICULAR RHYTHM VENT. RATE HAS INCREASED BY 75 BPM Confirmed by MD Joe, Eyad ([id number]) on 01/11/2018 1:33:02 PM Referred By: BENITA Confirmed By:Eyad Diaz MD
--- NOTE | 2018-01-11 13:36 | DS ---
Physical Exam: SUBJECTIVE: Patient seen and examined, ambulatory at bedside, awaiting transfer to [facility] OBJECTIVE: This is a 72 year old male with a significant history of L inguinal hernia who presented to the ED with abdominal pain, nausea and vomiting. He also reports difficulty with having bowel movements. Upon exam, pt denies current vomiting. He reports that his pain has resolved. ER course was notable for: (1) CT abd/pelvis (2) WBC 16.5 Vital Signs Period Temp Pulse Resp BP Sys/Graay Pulse Ox Last 24 Hr 98.1 F-98.5 F 78-80 18-20 90-126/51-76 95-100 PHYSICAL EXAM GENERAL: The patient is awake, alert, and oriented times person and place, agitation. HEAD: Normal with no signs of trauma. EYES: PERRL, extraocular movements intact, sclera anicteric, conjunctiva clear. No ptosis. ENT: Ears normal, nares patent, oropharynx clear without exudates, moist mucous membranes. NECK: Trachea midline, full range of motion, supple. LUNGS: Breath sounds equal, clear to auscultation bilaterally, no wheezes, no crackles, no accessory muscle use. HEART: Regular rate and rhythm, S1, S2 without murmur, rub or gallop. ABDOMEN: Soft, left groin reducible hernia nontender, nondistended, normoactive bowel sounds, no guarding, no rebound, no hepatosplenomegaly, no masses. EXTREMITIES: 2+ pulses, warm, well-perfused, no edema. NEUROLOGICAL: Cranial nerves II through XII grossly intact. Normal speech, gait not observed. PSYCH: Normal mood, normal affect. SKIN: Warm, dry, normal turgor, no rashes or lesions noted LABS Laboratory Results - last 24 hr 01/10/18 01/10/18 01/10/18 13:15 13:15 13:15 WBC 16.5 H RBC 5.54 Hgb 15.2 Hct 46.6 MCV 84.2 MCH 27.5 MCHC 32.7 RDW 13.3 Plt Count 254 MPV 8.7 Neutrophils % No Result Required. Neutrophils % (Manual) 84.0 H Band Neutrophils % 12.0 H Lymphocytes % No Result Required. Lymphocytes % (Manual) 1.0 L Monocytes % Monocytes % (Manual) 3 L Eosinophils % Basophils % PT with INR 13.1 H INR 1.17 PTT (Actin FS) 25.3 L Sodium 137 Potassium 4.2 Chloride 98 Carbon Dioxide 23 Anion Gap 16 BUN 29 H Creatinine 1.6 H Creat Clearance w eGFR 42.46 POC Glucometer Random Glucose 241 H Lactic Acid Calcium 10.3 H Phosphorus 4.0 Magnesium 1.7 L Total Bilirubin 1.0 AST 24 ALT 9 L Alkaline Phosphatase 72 Troponin I Total Protein 7.3 Albumin 4.6 Lipase 188 Urine Color Urine Appearance Urine pH Ur Specific [place] Urine Protein Urine Glucose (UA) Urine Ketones Urine Blood Urine Nitrite Urine Bilirubin Urine Urobilinogen Ur Leukocyte Esterase Urine RBC Urine WBC Urine Bacteria 01/10/18 01/10/18 01/10/18 13:15 13:15 16:44 WBC RBC Hgb Hct MCV MCH MCHC RDW Plt Count MPV Neutrophils % Neutrophils % (Manual) Band Neutrophils % Lymphocytes % Lymphocytes % (Manual) Monocytes % Monocytes % (Manual) Eosinophils % Basophils % PT with INR INR PTT (Actin FS) Sodium Potassium Chloride Carbon Dioxide Anion Gap BUN Creatinine Creat Clearance w eGFR POC Glucometer [phone] Random Glucose Lactic Acid 3.4 H* Calcium Phosphorus Magnesium Total Bilirubin AST ALT Alkaline Phosphatase Troponin I < 0.03 Total Protein Albumin Lipase Urine Color Urine Appearance Urine pH Ur Specific [place] Urine Protein Urine Glucose (UA) Urine Ketones Urine Blood Urine Nitrite Urine Bilirubin Urine Urobilinogen Ur Leukocyte Esterase Urine RBC Urine WBC Urine Bacteria 01/10/18 01/10/18 01/10/18 20:15 22:00 22:16 WBC RBC Hgb Hct MCV MCH MCHC RDW Plt Count MPV Neutrophils % Neutrophils % (Manual) Band Neutrophils % Lymphocytes % Lymphocytes % (Manual) Monocytes % Monocytes % (Manual) Eosinophils % Basophils % PT with INR INR PTT (Actin FS) Sodium Potassium Chloride Carbon Dioxide Anion Gap BUN Creatinine Creat Clearance w eGFR POC Glucometer 140 Random Glucose Lactic Acid 2.5 H* Calcium Phosphorus Magnesium Total Bilirubin AST ALT Alkaline Phosphatase Troponin I Total Protein Albumin Lipase Urine Color Yellow Urine Appearance Clear Urine pH 5.5 Ur Specific [place] 1.025 Urine Protein 1+ H Urine Glucose (UA) Trace Urine Ketones 1+ H Urine Blood Negative Urine Nitrite Negative Urine Bilirubin 1+ H Urine Urobilinogen 0.2 Ur Leukocyte Esterase Trace H Urine RBC 0-2 Urine WBC 10-20 Urine Bacteria Few 02/27/18 02/27/18 02/27/18 06:05 07:30 07:30 WBC 9.8 D RBC 4.95 Hgb 13.7 Hct 41.4 MCV 83.5 MCH 27.7 MCHC 33.2 RDW 13.1 Plt Count 237 MPV 9.0 Neutrophils % 85.7 H Neutrophils % (Manual) Band Neutrophils % Lymphocytes % 8.3 Lymphocytes % (Manual) Monocytes % 5.9 Monocytes % (Manual) Eosinophils % 0.1 Basophils % 0.0 PT with INR INR PTT (Actin FS) Sodium 137 Potassium 4.4 Chloride 110 H D Carbon Dioxide 22 Anion Gap 5 L BUN 36 H D Creatinine 1.4 H Creat Clearance w eGFR POC Glucometer 152 Random Glucose 159 H D Lactic Acid Calcium 8.7 Phosphorus 2.9 D Magnesium 1.8 Total Bilirubin AST ALT Alkaline Phosphatase Troponin I Total Protein Albumin Lipase Urine Color Urine Appearance Urine pH Ur Specific [place] Urine Protein Urine Glucose (UA) Urine Ketones Urine Blood Urine Nitrite Urine Bilirubin Urine Urobilinogen Ur Leukocyte Esterase Urine RBC Urine WBC Urine Bacteria 01/11/18 07:30 WBC RBC Hgb Hct MCV MCH MCHC RDW Plt Count MPV Neutrophils % Neutrophils % (Manual) Band Neutrophils % Lymphocytes % Lymphocytes % (Manual) Monocytes % Monocytes % (Manual) Eosinophils % Basophils % PT with INR INR PTT (Actin FS) Sodium Potassium Chloride Carbon Dioxide Anion Gap BUN Creatinine Creat Clearance w eGFR POC Glucometer Random Glucose Lactic Acid 1.4 Calcium Phosphorus Magnesium Total Bilirubin AST ALT Alkaline Phosphatase Troponin I Total Protein Albumin Lipase Urine Color Urine Appearance Urine pH Ur Specific [place] Urine Protein Urine Glucose (UA) Urine Ketones Urine Blood Urine Nitrite Urine Bilirubin Urine Urobilinogen Ur Leukocyte Esterase Urine RBC Urine WBC Urine Bacteria IMAGING IMPRESSION: a mall bowel obstruction is identified secondary to a large left inguinal hernia extending into the ipsilateral scrotum. A small amount of free fluid is noted within the left scrotal hernia sac as well as within the perihepatic region. Extensive atherosclerotic coronary artery calcifications are seen. Transvenous cardiac pacemaker in place. Reported By: Car Munoz MD 01/10/18 1431 ECG Atrial sensed ventricular-paced rhythm Vent rate 95, QTC 542 HOSPITAL COURSE 1) SBO - secondary to left inginual hernia - keep npo, small sips or water with meds - Dr Laughlin, surgery, consulted, patient is requesting transfer to [place], Dr Linares (surgeon), case discussed with Dr Linares and he has evaluated the patient, last evaluation was Wednesday, 01/03, patient was accepted for tranfer to [place] in the care of Dr Linares. - lactic acidosis, secondary to large inginual hernia with leukocytosis, improved with rocephin and flagyl and IV hydration 2) cardiovascular hypertension - no medications, b/p at goal hyperlipidemia - hold simvastin, pt is npo 3) endo dm - hold metformin PLAN: - transfer to [facility] to services of Dr Linares - discussed plan with Keily (daughter) agrees with transfer Date of Admission:01/10/18 Date of Discharge: 01/11/18 Minutes to complete discharge: 45 Discharge Summary Reason For Visit: SMALL BOWEL OBSTRUCTION Current Active Problems Bowel obstruction (Acute) HTN (hypertension) (Acute) Hyperlipemia (Acute) Inguinal hernia (Acute) Left inguinal hernia (Acute) Condition: Stable - Instructions Referrals: Sadi Linares MD [Non Staff, Medical] - Disposition: TRANSFER ACUTE CARE/OTHER HOSP - Home Medications Comprehensive Discharge Medication List: Ambulatory Orders Aspirin 81 mg PO DAILY 01/10/18 Carbidopa/Levodopa [Rytary ER 23.75 mg-95 mg Cap] 3 each PO TID 01/10/18 Ranitidine HCl [Zantac] 150 mg PO DAILY 01/10/18 Simvastatin [Zocor -] 40 mg PO DAILY 01/10/18 Famotidine [Pepcid -] 20 mg PO BID tablet 01/11/18 Insulin Sliding Scale [Novolog Vial Sliding Scale -] 1 vial SQ ACHS units 01/11 This patient is new to me today: No Emergency Visit: Yes ED Registration Date: 01/10/18 Care time: The patient presented to the Emergency Department on the above date and was hospitalized for further evaluation of their emergent condition. Critical Care patient: No - Discharge Referral Referred to [facility] Med P.C.: No
[2018-01-11] MEDS: INSULIN SLIDING SCALE (NOVOLOG) 1 VIAL SQ SCH ×3 (14:04→17:31)
[2018-01-11 17:12] VITALS: BP 126/67; PULSE 80; TEMP 98.5
[2018-01-11] MEDS ORDERED: FAMOTIDINE 20 MG TABLET PO SCH (22:00)
== END 2018-01-11 20:05 | disposition short-term general hospital (02) | DRG 394 ==
LOC: FER 12:29 → FM/S 18:57
PROVIDERS: ADMIT Internal Medicine; ATTEND Nurse Practitioner Family
DX: K40.30 Unilateral inguinal hernia, with obstruction, without gangrene, not specified as recurrent (principal); E87.2 Acidosis; E11.9 Type 2 diabetes mellitus without complications; G20 Parkinson's disease; E78.5 Hyperlipidemia, unspecified; Z87.891 Personal history of nicotine dependence; Z95.0 Presence of cardiac pacemaker; F03.90 Unspecified dementia, unspecified severity, without behavioral disturbance, psychotic disturbance, mood disturbance, and anxiety; Z79.84 Long term (current) use of oral hypoglycemic drugs; Z53.29 Procedure and treatment not carried out because of patient's decision for other reasons
CPT/HCPCS: 36415; 74176-TC; 80048; 80053; 81003; 81015; 82962; 83605; 83690; 83735; 84100; 84484; 85025; 85610; 85730; 86850; 86900; 86901; 87040; 87086; 93005; 99283-25

== ENCOUNTER 2018-06-01 08:23 | Day surgery (SDC) | payer OTHER ==
[2018-05-31 12:52] VITALS: BMI 33.7
[2018-06-01] MEDS ORDERED: CARBACHOL 0.01% INTRA-OCULAR 1.5 ML VIAL ONE (08:40)
[2018-06-01] MEDS ORDERED: LIDOCAINE 1% P/F 10 MG/ML VIAL ONE ×2 (08:40→10:13)
[2018-06-01] MEDS ORDERED: BSS (NA/CA/MG/K) BALANCED SALT SOLUTION OPHTH SOLN 15 ML BOTTLE ONE (08:40)
[2018-06-01] MEDS ORDERED: EPINEPHrine/PF 1 MG/1 ML (1:1,000) AMPULE ONE (08:41)
[2018-06-01] MEDS ORDERED: NEO/POLYMYX B SULF/DEXAMETH OPHTHALMIC 5ML BOTTLE ONE (08:41)
[2018-06-01] MEDS: PHENYLEPHRINE 2.5% OPHTH SOLN 15 ML BOTTLE ONE ×3 (08:45→08:55)
[2018-06-01] MEDS: CIPROFLOXACIN 0.3% EYE DROPS 5 ML BOTTLE ONE ×3 (08:45→08:55)
[2018-06-01] MEDS: TROPICAMIDE 1% OPHTH SOLN 15 ML BOTTLE ONE ×3 (08:45→08:55)
[2018-06-01] MEDS: CYCLOPENTOLATE 2% OPHTH SOLN 2 ML BOTTLE ONE ×3 (08:45→08:55)
[2018-06-01] MEDS ORDERED: MIDAZOLAM HCL 2 MG/2 ML SINGLE DOSE VIAL ONE (09:56)
--- NOTE | 2018-06-01 10:50 | OP ---
DATE OF OPERATION: 06/01/2018 OPERATIVE PROCEDURE: Lens phacoemulsification with posterior chamber intraocular lens placement, right eye. PREOPERATIVE DIAGNOSIS: Visually significant cataract of right eye. POSTOPERATIVE DIAGNOSIS: Visually significant cataract of right eye. SURGEON: Curtis Valle MD ANESTHESIA: MAC. PROCEDURE: The patient was brought to the operating room and placed under monitored anesthesia care by Anesthesia. A drop of tetracaine was then placed over the right eye. The patient was then prepped and draped in the usual sterile manner. A speculum was then placed over the right eye. The eye was then well irrigated with copious amounts of BSS (balanced salt solution). The operating microscope was then moved into position. A paracentesis was performed using a 15-degree blade. At this point 0.5 mL of 1% preservative-free lidocaine was injected into the anterior chamber. Amvisc Plus was then injected into the anterior chamber. A clear corneal incision was then formed using a 2.2-mm keratome. A capsulorrhexis was then performed in a continuous circular fashion beginning with a cystotome completed with an Utratas forceps. Hydrodissection was then performed using BSS on a cannula. The phaco probe was then introduced through the corneal wound and the cataract was removed using the phaco chop technique. Approximately 3 seconds of absolute phaco time was used. The remaining cortex was then removed using irrigation and aspiration with an I/A probe. The capsule was then filled with regular Amvisc and the capsule was noted to be intact. A previously selected foldable posterior chamber intraocular lens was then injected into the capsule through the corneal wound using a lens injector. It was then dialed into position using a [place] hook. The Amvisc was then removed using irrigation and aspiration. Miostat was then injected through the paracentesis to constrict the pupil. The paracentesis and corneal wound were then hydrated and noted to be watertight. A drop of Maxitrol was then placed over the eye. The speculum was removed and clear shield was taped over the eye. The patient tolerated the procedure well and there were no surgical complications. The patient was asked to follow up in my office the next day. CURTIS VALLE M.D. NADIA/[id number]
[2018-06-01 11:17] VITALS: TEMP 98.2
[2018-06-01 11:29] VITALS: BP 148/75; PULSE 78
== END 2018-06-01 11:33 | disposition home or self-care (01) ==
LOC: FASU 08:23
PROVIDERS: ATTEND Ophthalmology
PROC: 08RJ3JZ Replacement of Right Lens with Synthetic Substitute, Percutaneous Approach (ICD-10-PCS; principal; 2018-06-01 10:10)
DX: H26.8 Other specified cataract (principal)
CPT/HCPCS: 82962